=== PATIENT | male | born 1955 | race Caucasian/White ===

== ENCOUNTER → 2018-02-15 | Outpatient (CLI) | payer OTHER, MEDICAID | LOC: FIMAGING 13:35 | PROVIDERS: ATTEND Psychiatry & Neurology Neurology | DX: R27.9 Unspecified lack of coordination (principal) ==

== ENCOUNTER → 2018-03-04 | Outpatient (CLI) | payer OTHER, MEDICAID | LOC: FIMAGING 14:24 | PROVIDERS: ATTEND Psychiatry & Neurology Neurology | DX: M48.02 Spinal stenosis, cervical region (principal); M50.321 Other cervical disc degeneration at C4-C5 level ==

== ENCOUNTER → 2018-06-30 | Outpatient (CLI) | payer OTHER, MEDICAID ==
[~2018-06-30] MED LIST: IOPAMIDOL (ISOVUE 370) 100 ML BTL IV ONE
== END ==
LOC: FIMAGING 15:33
PROVIDERS: ATTEND Surgery
DX: I73.9 Peripheral vascular disease, unspecified (principal); L97.523 Non-pressure chronic ulcer of other part of left foot with necrosis of muscle; I70.0 Atherosclerosis of aorta; I70.293 Other atherosclerosis of native arteries of extremities, bilateral legs; R93.1 Abnormal findings on diagnostic imaging of heart and coronary circulation
CPT/HCPCS: 75635; Q9967; 82565-PO

== ENCOUNTER → 2018-07-26 | Outpatient (CLI) | payer OTHER, MEDICAID | LOC: FIMAGING 10:25 | PROVIDERS: ATTEND Surgery | DX: I74.3 Embolism and thrombosis of arteries of the lower extremities (principal); L97.529 Non-pressure chronic ulcer of other part of left foot with unspecified severity; I73.9 Peripheral vascular disease, unspecified; I25.10 Atherosclerotic heart disease of native coronary artery without angina pectoris; E11.9 Type 2 diabetes mellitus without complications; F31.9 Bipolar disorder, unspecified; Z86.73 Personal history of transient ischemic attack (TIA), and cerebral infarction without residual deficits ==

== ENCOUNTER 2018-07-27 08:39 | Inpatient (IN) | payer OTHER, MEDICAID ==
[2018-07-27] MEDS ORDERED: ceFAZolin 2 GM/DEXTROSE 100 ML IV ONE (08:50)
[2018-07-27] MEDS ORDERED: LR 1,000 ML IV ONE (08:51)
--- NOTE | 2018-07-27 09:09 | PDHPUP ---
History & Physical Update H&P update statement: This history and physical update is based on an assessment of the patient which was completed after admission or registration (within 24 hours), but prior to the surgery/procedure. H&P update: H&P reviewed & patient examined, no change in patient's condition since H&P completed
[2018-07-27 09:39] LABS: PLATELET COUNT 185 10^3/uL (150-400)
[2018-07-27] MEDS ORDERED: PROTAMINE SULFATE 50 MG/5 ML VIAL IVP ONE ×2 (10:39→13:26)
[2018-07-27] MEDS ORDERED: BUPIVACAINE 0.5% 30 ML SDV ONE ×2 (10:39→13:26)
[2018-07-27] MEDS ORDERED: THROMBIN (BOVINE) 20,000 UNIT SPRAY TP ONE ×2 (10:39→13:26)
[2018-07-27] MEDS ORDERED: IOPAMIDOL (ISOVUE-M 300) 15 ML VIAL ONE (10:40)
[2018-07-27] MEDS ORDERED: MIDAZOLAM 2 MG/2 ML VIAL IVP ONE (13:14)
--- NOTE | 2018-07-27 13:14 | PDANEPAE ---
ANE History of Present Illness major vascular disease and here for fem-pop to restore circulation to LLE and promote healing of non-healing wounds and reduce both resting and active pain ANE Past Medical History - Cardiovascular History Hx Hypertension: Yes Hx Arrhythmias: Yes Hx Chest Pain: No Hx Coronary Artery / Peripheral Vascular Disease: Yes Hx CHF / Valvular Disease: Yes Hx Palpitations: No Cardiovascular History Comment: Alayna-parkinson white syndrome. pacemaker. cad. NH- 2000 - Pulmonary History Hx COPD: No Hx Asthma/Reactive Airway Disease: No Hx Recent Upper Respiratory Infection: No Hx Oxygen in Use at Home: No Hx Sleep Apnea: No - Neurologic History Hx Seizures: No Hx Dementia: No Neurologic History Comment: stroke- 2008 - Endocrine History Hx Diabetes: Yes - Renal History Hx Renal Disorders: No - Liver History Hx Hepatic Disorders: No - Neurological & Psychiatric Hx Hx Neurological and Psychiatric Disorders: Yes Neurological / Psychiatric History Comment: Bipolar - Cancer History Hx Cancer: No - Congenital Disorder History Hx Congenital Disorders: Yes Congenital History Comment: [place]ff[place]-parkinson white syndrome - GI History Hx Gastrointestinal Disorders: No - Other Health History Other Health History: neurogenic bladder - Chronic Pain History Chronic Pain: Yes - Surgical History Prior Surgeries: pacemaker. gallbladder ANE Review of Systems Review of Systems: - Exercise capacity METS (RN): 1 METS ANE Patient History - Allergies Allergies/Adverse Reactions: fenofibrate nanocrystallized [From Tricor] Allergy (Verified 10/25/15 10:10) fenofibrate,micronized [From Tricor] Allergy (Verified 10/25/15 10:10) - Home Medications Home Medications: Acetaminophen [Tylenol ES 500 mg (*)] 1,000 mg PO Q2D PRN 11/06/15 [Last Taken 1 Week Ago ~07/20/18] Albuterol [Proventil Neb] 3 ml IH Q6 PRN 11/06/15 [Last Taken 07/26/18] Albuterol [Proventil Neb] 3 ml IH QID 11/06/15 [Last Taken Unknown] Ascorbic Acid [Vitamin C 500 mg (*)] 500 mg PO DAILY 11/06/15 [Last Taken 1 Week Ago ~07/20/18] Aspirin [Aspirin 81mg (*)] 81 mg PO DAILY 11/06/15 [Last Taken 1 Week Ago ~07/20] Atorvastatin Calcium [Lipitor 20 mg (*)] 20 mg PO DAILY 11/06/15 [Last Taken 05/15] Benzocaine 20%/Menthol [Orajel (*)] 1 candie TP Q4 PRN 11/06/15 [Last Taken ] Bethanechol Chloride [Urecholine] 50 mg PO TID 11/06/15 [Last Taken 07/26/18] Bisacodyl [Dulcolax] 10 mg RC DAILY PRN 11/06/15 [Last Taken 07/26/18] CYCLOBENZAPRINE HCL [Flexeril] 5 mg PO BID PRN 11/06/15 [Last Taken 07/26/18] Carvedilol [Coreg (*)] 25 mg PO DAILY 11/06/15 [Last Taken 07/26/18] Carvedilol [Coreg (*)] 37.5 mg PO DAILY@18 11/06/15 [Last Taken Unknown] Diazepam [Valium 5 MG (*)] 5 mg PO BID 11/06/15 [Last Taken 07/26/18] Ergocalciferol [Vitamin D2 (*)] 50,000 unit PO Q30D 11/06/15 [Last Taken ] Famotidine [Pepcid 20 MG (*)] 20 mg PO BID PRN 11/06/15 [Last Taken 07/26/18] Fluticasone Nasal [Flonase Nasal [place]] 1 sprays NASAL BID PRN 11/06/15 [Last Taken 07/26/18] Herbals/Supplements -Info Only 1 ea PO DAILY 11/06/15 [Last Taken 1 Week Ago ~] Ibuprofen [Motrin (*)] 600 mg PO Q6 PRN 11/06/15 [Last Taken 1 Week Ago ~] Insulin Glargine [Lantus 100 UNITS/ML] 6 units SC HS 11/06/15 [Last Taken ] Lisinopril [Zestril 30 mg] 30 mg PO BID 11/06/15 [Last Taken 07/26/18] Loratadine [Claritin 10 mg] 10 mg PO BID PRN 11/06/15 [Last Taken 07/26/18] Magnesium Hydroxide [Milk of Magnesia (*)] 30 ml PO DAILY PRN 11/06/15 [Last Taken 07/26/18] Methyl Salicylate/Menthol [Bengay (*)] 1 candie TP TID 11/06/15 [Last Taken ] Saxon-3 Fatty Acids [Fish Oil 1000 mg (*)] 2,000 mg PO DAILY 11/06/15 [Last Taken 07/26/18] Ondansetron Odt [Zofran Odt 4 mg (*)] 4 mg PO Q8 PRN 11/06/15 [Last Taken ] Polyethylene Glycol 3350 [Miralax 17 gm (*)] 17 gm PO BID 11/06/15 [Last Taken 07/26/18] Propranolol Sr [Inderal LA 80mg (*)] 120 mg PO Q12 11/06/15 [Last Taken 07/26/18 ] Sennosides [Senokot] 2 each PO BID 11/06/15 [Last Taken 07/26/18] Solifenacin Succinate [Vesicare 5 MG (*)] 5 mg PO DAILY8 11/06/15 [Last Taken ] Tamsulosin HCl [Flomax 0.4 MG (*)] 0.8 mg PO DAILY 11/06/15 [Last Taken 07/26/18 ] Tears/Dextran 70/Hypromellose [Natural Balance Tears (*)] 1 drop EACHEYE Q6 PRN 11/06/15 [Last Taken 07/27/18] Zolpidem Tartrate [Ambien 5MG (*)] 2.5 mg PO HS PRN 11/06/15 [Last Taken ] clonIDINE [Catapres (*)] 0.1 mg PO DAILY PRN 11/06/15 [Last Taken 07/26/18] glipiZIDE XL [Glucotrol XL 10 MG (*)] 20 mg PO DAILY 11/06/15 [Last Taken ] guaiFENesin [Mucinex 600 MG (*)] 600 mg PO BID 11/06/15 [Last Taken Unknown] guaiFENesin/DEXTROMETHORPHAN [Robitussin Dm Oral Liquid (*)] 10 ml PO BID PRN [Last Taken Unknown] lamoTRIgine [LamICTAL 100 MG (*)] 200 mg PO DAILY 07/12/16 [Last Taken 07/26/18] metFORMIN HCL [Glucophage 500 mg (*)] 1,000 mg PO BIDMEAL 11/06/15 [Last Taken 07/26/18] oxyCODONE IR [Oxycodone Ir (*)] 15 mg PO BID PRN 11/06/15 [Last Taken 1 Week Ago ~07/20/18] sitaGLIPtin PHOSPHATE [Januvia 100 MG (*)] 100 mg PO DAILY 11/06/15 [Last Taken 07/26/18] tiZANidine HCL [Zanaflex] 4 mg PO BID 11/06/15 [Last Taken 07/26/18] traMADol [Ultram 50 mg (*)] 50 mg PO BID 11/06/15 [Last Taken 07/26/18] - NPO status NPO Since - Liquids (Date): 07/26/18 NPO Since - Liquids (Time): 19:00 NPO Since - Solids (Date): 07/26/18 NPO Since - Solids (Time): 19:00 - Smoking Hx Smoking Status: Heavy smoker - Family Anes Hx Family Hx Anesthesia Complications: none ANE Labs/Vital Signs - Labs Result Diagrams: 07/27/18 08:50 07/27/18 08:50 - Vital Signs Blood Pressure: 168/105 Heart Rate: 76 Respiratory Rate: 16 O2 Sat (%): 93 Height: 190.5 cm Weight: 83.915 kg ANE Physical Exam - Airway Neck exam: decreased ROM Mallampati Score: Class 3 Mouth exam: dentures - Pulmonary Pulmonary: no respiratory distress, no rales or rhonchi - Cardiovascular Cardiovascular: regular rate and rhythym, no murmur, rub, or gallop - ASA Status ASA Status: III ANE Anesthesia Plan Anesthesia Plan: general endotracheal anesthesia Lines/Monitors: arterial line Total IV Anesthesia: No
[2018-07-27] MEDS ORDERED: IOTHALAMATE MEG (CONRAY) 50 ML VIAL IV ONE (13:27)
[2018-07-27] MEDS ORDERED: THROMBIN(HUM PLAS)/FIBRINOG/CA 5 ML VIAL TP ONE (13:28)
[2018-07-27] MEDS ORDERED: PHENYLEPHRINE 10 MG/ML SDV ONE (13:29)
[2018-07-27] MEDS ORDERED: ONDANSETRON 4 MG/2 ML VIAL ONE (13:29)
[2018-07-27] MEDS ORDERED: ROCURONIUM 100 MG/10 ML VIAL ONE (13:29)
[2018-07-27] MEDS ORDERED: DEXAMETHASONE 4 MG/ML VIAL ONE (13:29)
[2018-07-27] MEDS ORDERED: LIDOCAINE 2% 100 MG/5 ML SYR ONE (13:29)
[2018-07-27] MEDS ORDERED: PROPOFOL 200 MG/20 ML VIAL ONE ×2 (13:29→14:30)
[2018-07-27] MEDS ORDERED: fentaNYL 100 MCG/2 ML INJ ONE ×2 (13:29→14:31)
[2018-07-27] MEDS ORDERED: PAPAVERINE HCL 60 MG/2 ML SDV ONE (15:43)
--- NOTE | 2018-07-27 16:34 | ASMTCASEMG ---
Living Arrangements What is your living Answers: Alone arrangement? Who do you live with? Type Of Residence What kind of residence do Answers: Apartment you live in? Discharge Plan Comments Coordination Status Comments Notes: Patient is a 62yo single male who comes for surgery of nonhealing left foot wound. OT has been ordered. D/C plan TBD. CM will follow. Date Signed: 07/27/2018 04:33 PM Electronically Signed By:Annamaria Malave LCSW
[2018-07-27] MEDS ORDERED: SUGAMMADEX SODIUM 200 MG/2 ML VIAL IVP ONE (17:02)
[2018-07-27] MEDS ORDERED: ONDANSETRON 4 MG/2 ML VIAL IVP PRN ×2 (17:25→17:46)
[2018-07-27] MEDS ORDERED: NALOXONE HCL 0.4 MG/ML INJ IVP PRN (17:25)
[2018-07-27] MEDS ORDERED: ALBUTEROL 3 ML DEYVIAL IH PRN (17:25)
[2018-07-27] MEDS ORDERED: fentaNYL 100 MCG/2 ML INJ IVP PRN (17:25)
[2018-07-27] MEDS ORDERED: HYDROmorphONE/DILAUDID 1 MG/ML INJ ONE (17:41)
[2018-07-27] MEDS: HYDROmorphONE/DILAUDID 1 MG/ML INJ IVP PRN ×3 (17:44→18:08)
--- NOTE | 2018-07-27 17:45 | POSTANESTH ---
Post Anesthetic Evaluation Cardiovascular Status: Normal, Stable Respiratory Status: Normal, Stable Level of Consciousness/Mental Status: Can Participate in Eval Pain Control: Adequate, Prn Tx Ordered Nausea/Vomiting Control: Adequate, Prn Tx Ordered Complications Possibly Related to Anesthesia: None Noted
[2018-07-27] MEDS ORDERED: HYDROmorphONE/DILAUDID 1 MG/ML INJ IVP PRN (17:46)
--- NOTE | 2018-07-27 17:54 | POSTOPPROG ---
Post Op Note Date of Operation: 07/27/18 Surgeon: Stewart Lebron Sieve Grader Tender: Christina Lazo Anesthesiologist: Marce Walker/ Dariusz Kelly Anesthesia: GET(General Endotracheal) Pre-op Diagnosis: PAD, nonhealing LLE wound Post-op Diagnosis: same Procedure: L below knee fempop bypass c reverse saphenous v. graft Findings: good pedal pulse postprocedure; calcified fem. a; soft popliteal below knee Inf/Abcess present in the surg proc area at time of surgery?: No EBL: 50-100 Complications: none Bowel Protocol: N/A Clean Closure Performed: N/A Specimen(s): none
[2018-07-27] MEDS: DOCUSATE SODIUM 100 MG CAP PO SCH (19:56)
[2018-07-27] MEDS ORDERED: D50W 25 GM/50 ML SYR IVP PRN (20:02)
[2018-07-27] MEDS: NS 1,000 ML IV SCH ×2 (20:30→23:53)
[2018-07-27] MEDS ORDERED: ACETAMINOPHEN 325 MG TAB PO PRN (20:46)
--- NOTE | 2018-07-27 21:12 | PDMN ---
Medical Necessity Medical necessity: Pt meets inpt criteria per MD order and [facility] S-480, Femoral Popliteal Bypass, 2 days, IP only list. 62 y/o w/PAD, nonhealing LLE wound underwent L below knee fem pop bypass w/reverse saphenous vein graft. Pt w/mult comorbidities including diabetes, CAD, bipolar disorder, and hx CVA.
[2018-07-27] MEDS: traMADol 50 MG TAB PO PRN (21:31)
[2018-07-27] MEDS: traZODone 50 MG TAB PO SCH (21:31)
--- NOTE | 2018-07-27 21:52 | PDCONSULT ---
Creative Writing English Professor Note: Aaron Kraus is a 62-year-old male with past medical history of peripheral vascular disease, diabetes, coronary artery disease, CVA with subsequent hemiparesis, bipolar disorder who was admitted for a left fem-pop bypass. Medicine has been consulted to assist with medical management. He is currently postop day 0 status post right fem-pop bypass. He is complaining of some mild back pain which he says is secondary to being bed ridden for so long. Otherwise his pain is well controlled and he is essentially without complaints. He had been following with surgery for peripheral vascular disease the left him with a nonhealing ulcer on the lateral aspect of his left foot. 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.He also had a chronically thrombosed and recanalized proximal popliteal artery Past medical history BPH CVA with subsequent left-sided hemiparesis Non insulin dependent diabetes mellitus Hypertension Bipolar With Parkinson White Past surgical history Cystoscopy Prostate vaporization (PVP) Social history Smokes marijuana Does not drink Smokes tobacco Family history Noncontributory Allergies Fenofibrate Try cor Medications Patient does not know his medications but through chart review appears his meds include: Gemini Norvasc 2.5 daily Baby aspirin daily But then a coal 50 mg three times daily Coreg 25 mg twice daily Valium 5 mg twice daily Flomax 0.8 mg daily Glipizide 10 mg twice daily Januvia 100 mg daily Lamictal 100 mg daily Lipitor 20 mg daily Lisinopril 20 mg twice daily Metformin 1 g twice daily Propranolol/hydrochlorothiazide 1 tablet twice daily Vital signs Blood pressure 129/77, pulse 61, respirations 15, saturating 99% on 3 L of oxygen, temperature 37.5 degrees C Examination General- no acute distress HEENT-PERRLA, atraumatic normocephalic, mucous membranes moist pink and acyanotic Lungs-clear to auscultation bilaterally Cardiovascular-regular rhythm and rate no murmurs rubs gallops Abdomen- soft nontender nondistended in all quadrants no organomegaly Extremities- left extremity is bandaged Neuro- cranial nerves 2-12 are grossly intact, no focal neurologic deficits Psych-mood affect appropriate - no CVA tenderness Assessment plan 62-year-old male with past medical history of non insulin-dependent diabetes mellitus, hypertension, CVA, CAD, bipolar, BPH PVD status post left fem-pop bypass- postop day 0. Management per surgery Non insulin-dependent diabetes mellitus- patient does not know his medications, he says he is only on metformin, but I see glipizide and Januvia and his medication list. I have asked the pharmacy to reconcile his home medications. In the meantime would continue with sliding scale insulin Hypertension- appears he is on lisinopril, propranolol and hydrochlorothiazide at home although he was not aware of that. Pressures are low to normal currently. All add p.r.n. Hydralazine 10 mg q.6 for systolics over 170 until his medications can be reconciled Bipolar- resume Lamictal once dose confirmed CAD- on Coreg, lisinopril, Lipitor, and aspirin. Resume once medications reconciled BPH- continue Flomax Insomnia- takes trazodone 25 mg at bedtime p.r.n. Along with Valium. Prophylaxis- Lovenox Thank you for allowing us to assist in the care of this patient. Medicine will continue to follow
[2018-07-27] MEDS ORDERED: ALBUMIN 5% 250 ML BOTTLE IV ONE (22:04)
[2018-07-27] MEDS ORDERED: ALBUMIN 5% 250 ML IV ONE (22:30)
[2018-07-27] MEDS ORDERED: NS BOLUS 1000 ML (Wide open) IV ONE (22:30)
[2018-07-27] MEDS: DIAZEPAM 5 MG TAB PO SCH (22:30)
[2018-07-28] MEDS: LIDOCAINE 4%/MENTHOL 1% PATCH TD SCH ×2 (02:25→21:22)
[2018-07-28] MEDS: traMADol 50 MG TAB PO PRN (04:45)
[2018-07-28] MEDS ORDERED: POLYETHYLENE GLYCOL 3350 17 GM PKT PO PRN (07:25)
[2018-07-28] MEDS ORDERED: FLUTICASONE NASAL 120 SPRAYS/16 GM MDI EACHNARE PRN (07:25)
[2018-07-28] MEDS ORDERED: BENZOCAINE 20%/MENTHOL (ORAJEL) GEL 11.9GM TUBE TP PRN (07:25)
[2018-07-28] MEDS ORDERED: ALBUTEROL 3 ML DEYVIAL IH PRN (07:25)
[2018-07-28] MEDS: INSULIN LISPRO 100 UNIT/ML SC SCH ×3 (07:38→19:26)
[2018-07-28] MEDS: CARVEDILOL 25 MG TAB PO SCH ×2 (07:43→17:04)
[2018-07-28] MEDS ORDERED: TEARS/DEXTRAN 70/HYPROMELLOSE 15 ML OPHT.BTL EACHEYE PRN (07:49)
[2018-07-28] MEDS ORDERED: metFORMIN HCL 500 MG TAB PO SCH (08:00)
[2018-07-28] MEDS: SENNOSIDES 1 TAB PO SCH ×2 (08:06→21:23)
[2018-07-28] MEDS: DOCUSATE SODIUM 100 MG CAP PO SCH ×2 (08:07→21:23)
[2018-07-28] MEDS: ASPIRIN 81 MG CHEWABLE TAB PO SCH (08:07)
[2018-07-28] MEDS: MONTELUKAST SODIUM 10 MG TAB PO SCH (08:07)
[2018-07-28] MEDS: lamoTRIgine 100 MG TAB PO SCH ×2 (08:07→08:16)
[2018-07-28] MEDS: ATORVASTATIN CALCIUM 20 MG TAB PO SCH (08:07)
[2018-07-28] MEDS: glipiZIDE XL 5 MG TAB PO SCH (08:15)
[2018-07-28] MEDS: BETHANECHOL 25 MG TAB PO SCH ×3 (08:15→21:23)
[2018-07-28] MEDS: TAMSULOSIN HCL 0.4 MG CAP PO SCH (08:18)
[2018-07-28] MEDS ORDERED: PROPRANOLOL SR 60 MG CAP PO SCH (09:00)
[2018-07-28] MEDS ORDERED: LISINOPRIL 20 MG TAB PO SCH (09:00)
[2018-07-28] MEDS: PATCH REMOVAL 1 EA PATCH TD SCH (09:12)
--- NOTE | 2018-07-28 11:09 | SOAPPROG ---
SOAP Progress Note Assessment/Plan: Assessment/Plan: 62 Y M s/p L below knee fem pop bypass c reverse saphenous v. graft, POD#1. Doing well. Foot is warm. Palpable pedal pulses:) White catheter removed. Condom cath in place. Voiding. Pain controlled. OOB this am. No severe bending at hip or knee. Wounds well dressed. Change tomorrow. May leave open to air if dry. ADA diet. Medicines reconciled. Appreciate hospitalists' management of comorbidities. Dispo: medsurg. Eventually back to [facility]. S: minimal pain. no complaints. concerned about using his WC (will be ok after 2 -3 of strict hip/knee flexion precautions). O: alert, nad, very talkative this am, pleasant ctab rrr abd soft wounds well dressed, min dried shadowing, palpable pedal pulses L 07/28/18 11:05 Objective: Vital Signs Temp Pulse Resp BP Pulse Ox 37.4 C 66 27 H 115/64 94 07/27/18 19:15 07/28/18 08:00 07/28/18 08:00 07/28/18 08:00 07/28/18 08:00 Laboratory Results 07/28/18 04:50 07/28/18 04:50 07/27/18 07/28/18 07/29/18 05:59 05:59 05:59 Intake Total 4125 Output Total 625 Balance 3500 ICD10 Worksheet Patient Problems: Problems Problem Status Onset Abdominal pain Acute
--- NOTE | 2018-07-28 11:49 | ASMTCMCOM ---
CM Note CM Note Notes: Spoke with PT who recommends patient go for SNF rehab before returning to [facility]. Patient is a resident with [facility]. Patient transferred out of ICU. CM will need to follow up with [facility] regarding SNF rehab care for patient. Referral made. CM will follow. Date Signed: 07/28/2018 11:48 AM Electronically Signed By:Annamaria Malave LCSW
[2018-07-28] MEDS: OXYCODONE/APAP 5/325 TAB PO PRN ×2 (12:08→17:04)
--- NOTE | 2018-07-28 12:24 | HOSPPROG ---
Hospitalist Progress Note Assessment/Plan: 62-year-old male with past medical history of non insulin-dependent diabetes mellitus, hypertension, CVA, CAD, bipolar, BPH PVD status post left fem-pop bypass- postop day 1. Management per surgery Non insulin-dependent diabetes mellitus -cont ISS -cont home meds, but will stop Metformin in case contrast studies are needed Hypertension -soft BP here -will hold home meds for now Bipolar- Lamictal CAD- on Coreg, lisinopril, Lipitor, and aspirin at home. Holding Lisinopril BPH- continue Flomax Insomnia- takes trazodone 25 mg at bedtime p.r.n. Along with Valium. Anemia, follow Prophylaxis- Lovenox Subjective: no cp or sob. bp soft Objective: Vital Signs Temp Pulse Resp BP Pulse Ox 36.9 C 74 20 106/74 95 07/28/18 11:29 07/28/18 11:29 07/28/18 11:29 07/28/18 11:29 07/28/18 11:29 Laboratory Results 07/28/18 04:50 07/28/18 04:50 07/27/18 07/28/18 07/29/18 05:59 05:59 05:59 Intake Total 4125 Output Total 625 Balance 3500 - Physical Exam Constitutional: no apparent distress Eyes: PERRL, EOMI Ears, Nose, Mouth, Throat: moist mucous membranes, hearing normal, ears appear normal Cardiovascular: regular rate and rhythym, No edema Respiratory: no respiratory distress, no rales or rhonchi Gastrointestinal: normoactive bowel sounds, soft, non-tender abdomen Skin: warm Neurologic: AAOx3 Psychiatric: interacting appropriately, not anxious, not encephalopathic Lymph, Heme, Immunologic: No petechiae ICD10 Worksheet Patient Problems: Problems Problem Status Onset Abdominal pain Acute
[2018-07-28] MEDS ORDERED: BUDESONIDE EACHNARE SCH (21:00)
[2018-07-28] MEDS: DIAZEPAM 5 MG TAB PO SCH (21:23)
[2018-07-28] MEDS: traZODone 50 MG TAB PO SCH (21:23)
[2018-07-29] MEDS: OXYCODONE/APAP 5/325 TAB PO PRN ×4 (00:29→21:17)
[2018-07-29 06:31] LABS: PLATELET COUNT 137 10^3/uL (150-400)
[2018-07-29] MEDS: glipiZIDE XL 5 MG TAB PO SCH (07:59)
[2018-07-29] MEDS: ATORVASTATIN CALCIUM 20 MG TAB PO SCH (07:59)
[2018-07-29] MEDS: DOCUSATE SODIUM 100 MG CAP PO SCH ×2 (07:59→21:15)
[2018-07-29] MEDS: MONTELUKAST SODIUM 10 MG TAB PO SCH (07:59)
[2018-07-29] MEDS: CARVEDILOL 25 MG TAB PO SCH ×2 (08:00→17:44)
[2018-07-29] MEDS: TAMSULOSIN HCL 0.4 MG CAP PO SCH (08:01)
[2018-07-29] MEDS: SENNOSIDES 1 TAB PO SCH ×2 (08:01→21:14)
[2018-07-29] MEDS: ENOXAPARIN 40 MG/0.4 ML SYR SC SCH (08:01)
[2018-07-29] MEDS: BETHANECHOL 25 MG TAB PO SCH ×3 (08:01→21:14)
[2018-07-29] MEDS: ASPIRIN 81 MG CHEWABLE TAB PO SCH (08:01)
[2018-07-29] MEDS: lamoTRIgine 100 MG TAB PO SCH (08:07)
[2018-07-29] MEDS: traMADol 50 MG TAB PO PRN (08:26)
[2018-07-29] MEDS: INSULIN LISPRO 100 UNIT/ML SC SCH ×3 (08:29→18:35)
[2018-07-29] MEDS: PATCH REMOVAL 1 EA PATCH TD SCH (10:13)
--- NOTE | 2018-07-29 14:40 | HOSPPROG ---
Hospitalist Progress Note Assessment/Plan: 62-year-old male with past medical history of non insulin-dependent diabetes mellitus, hypertension, CVA, CAD, bipolar, BPH PVD status post left fem-pop bypass- postop day 1. Management per surgery Non insulin-dependent diabetes mellitus -cont ISS -cont home meds, but have stopped Metformin in case contrast studies are needed Hypertension -soft BP here -will cont to hold home meds for now Bipolar- Lamictal CAD- on Coreg, lisinopril, Lipitor, and aspirin at home. Holding Lisinopril BPH- continue Flomax Insomnia- takes trazodone 25 mg at bedtime p.r.n. Along with Valium. Anemia, follow Prophylaxis- Lovenox Subjective: still with soft bp. stable overall. Pain is well controlled Objective: Vital Signs Temp Pulse Resp BP Pulse Ox 37.1 C 76 16 95/57 L 91 L 07/29/18 11:21 07/29/18 11:21 07/29/18 11:21 07/29/18 11:21 07/29/18 11:21 Laboratory Results 07/29/18 05:35 07/28/18 04:50 07/28/18 07/29/18 07/30/18 05:59 05:59 05:59 Intake Total 4125 200 Output Total 625 450 Balance 3500 -250 - Physical Exam Constitutional: no apparent distress Eyes: PERRL, EOMI Ears, Nose, Mouth, Throat: moist mucous membranes, hearing normal Cardiovascular: regular rate and rhythym Respiratory: no respiratory distress, no rales or rhonchi, clear to auscultation Gastrointestinal: normoactive bowel sounds Skin: warm Neurologic: AAOx3 Psychiatric: interacting appropriately, not anxious, not encephalopathic Lymph, Heme, Immunologic: No petechiae ICD10 Worksheet Patient Problems: Problems Problem Status Onset Abdominal pain Acute
--- NOTE | 2018-07-29 15:47 | SOAPPROG ---
SOAP Progress Note Assessment/Plan: Assessment/Plan: 62 Y M s/p L below knee fem pop bypass c reverse saphenous v. graft, POD#2 Doing well overall. Foot is warm. Palpable pedal pulses Barillas cath was removed yesterday, pt now having urinary incontinence due to neurogenic bladder. Reinsert barillas today. Pain controlled. Continue to get oob with PT. No severe bending at hip or knee. Ok to sit in wheelchair with leg extended. Wounds well dressed. Change tomorrow. May leave open to air if dry. Appreciate hospitalists' management of comorbidities. Dispo: Back to [facility] in the next day or so. S: Having pain, but improving. Reports he typically only ambulates with PT at [facility], but independently transfers in and out of wheelchair. Not quite strong enough to do it here yet. O: Alert Afebrile No increased WOB Abdomen soft, nontender RLE: incisions well dressed. +pedal pulses. 07/29/18 15:33 Objective: Vital Signs Temp Pulse Resp BP Pulse Ox 37.1 C 76 16 95/57 L 91 L 07/29/18 11:21 07/29/18 11:21 07/29/18 11:21 07/29/18 11:21 07/29/18 11:21 Laboratory Results 07/29/18 05:35 07/28/18 04:50 07/28/18 07/29/18 07/30/18 05:59 05:59 05:59 Intake Total 4125 200 Output Total 625 450 Balance 3500 -250 ICD10 Worksheet Patient Problems: Problems Problem Status Onset Abdominal pain Acute
--- NOTE | 2018-07-29 16:11 | ASMTCMCOM ---
CM Note CM Note Notes: Pts case discussed w/ [facility]. Anticipate d/c for tomorrow or Thursday. CM spoke to Matilde at [facility] and she will start getting auth. Updates sent. CM to follow. Plan: [facility] SNF[facility] Date Signed: 07/29/2018 04:10 PM Electronically Signed By:MARIA L Dubois
[2018-07-29] MEDS: LIDOCAINE 4%/MENTHOL 1% PATCH TD SCH (21:14)
[2018-07-29] MEDS: traZODone 50 MG TAB PO SCH (21:15)
[2018-07-29] MEDS: DIAZEPAM 5 MG TAB PO SCH (21:15)
[2018-07-30] MEDS: OXYCODONE/APAP 5/325 TAB PO PRN ×3 (04:25→17:41)
[2018-07-30] MEDS: INSULIN LISPRO 100 UNIT/ML SC SCH ×3 (07:52→17:02)
[2018-07-30] MEDS: CARVEDILOL 25 MG TAB PO SCH ×2 (08:04→17:28)
[2018-07-30] MEDS: ASPIRIN 81 MG CHEWABLE TAB PO SCH (08:04)
[2018-07-30] MEDS: glipiZIDE XL 5 MG TAB PO SCH (08:05)
[2018-07-30] MEDS: ATORVASTATIN CALCIUM 20 MG TAB PO SCH (08:05)
[2018-07-30] MEDS: lamoTRIgine 100 MG TAB PO SCH (08:05)
[2018-07-30] MEDS: BETHANECHOL 25 MG TAB PO SCH ×3 (08:05→20:34)
[2018-07-30] MEDS: SENNOSIDES 1 TAB PO SCH ×2 (08:06→20:34)
[2018-07-30] MEDS: MONTELUKAST SODIUM 10 MG TAB PO SCH (08:06)
[2018-07-30] MEDS: TAMSULOSIN HCL 0.4 MG CAP PO SCH (08:06)
[2018-07-30] MEDS: DOCUSATE SODIUM 100 MG CAP PO SCH ×2 (08:14→20:35)
[2018-07-30] MEDS: ENOXAPARIN 40 MG/0.4 ML SYR SC SCH (08:14)
[2018-07-30] MEDS: PATCH REMOVAL 1 EA PATCH TD SCH (08:26)
[2018-07-30] MEDS ORDERED: MAGNESIUM HYDROXIDE 30 ML UDCUP PO ONE (10:28)
[2018-07-30] MEDS ORDERED: HYDROmorphONE/DILAUDID 1 MG/ML INJ IVP PRN (10:29)
--- NOTE | 2018-07-30 10:34 | SOAPPROG ---
SOAP Progress Note Assessment/Plan: Assessment/Plan: 62 Y M s/p L below knee fem pop bypass c reverse saphenous v. graft, POD#2 Doing well overall. Foot is warm. Palpable pedal pulses Neurogenic bladder. Refused barillas catheter. Condom cath working well now. Pain controlled with oxycodone. Will add iv dilaudid for breakthrough pain. Continue to get oob with PT. No severe bending at hip or knee. Ok to sit in wheelchair with leg extended. Dressing changed today. Ok to leave open to air if dry. Constipation. Milk of mag ordered. Appreciate hospitalists' management of comorbidities. Dispo: Back to [facility] tomorrow. S: Still having significant pain, but reports that he has chronic pain in left knee. Slightly worse after surgery. Working with PT to get into chair. O: Alert Afebrile No increased WOB Abdomen soft, nontender RLE: dressing removed today. Incision appears to be healing well. Superior aspect is dry, inferior portion still oozy. RN to apply xeroform, 4x4s and kerlix. +pedal pulses 07/30/18 10:30 Objective: Vital Signs Temp Pulse Resp BP Pulse Ox 36.8 C 67 18 124/75 H 91 L 07/30/18 08:00 07/30/18 08:04 07/30/18 08:00 07/30/18 08:04 07/30/18 08:00 Laboratory Results 07/29/18 05:35 07/28/18 04:50 07/29/18 07/30/18 07/31/18 05:59 05:59 05:59 Intake Total 200 595 Output Total 832 925 Balance -250 -330 ICD10 Worksheet Patient Problems: Problems Problem Status Onset Abdominal pain Acute
--- NOTE | 2018-07-30 11:52 | ASMTCMCOM ---
CM Note CM Note Notes: Pts case discussed w/ [facility]. Pt is most likely going to d/c back to [facility] tomorrow until SNF benefits. CM notified Pau at [facility] (P#: [phone]) about the potential d/c for tomorrow. Pau should be able to get auth by then and accept him for rehab before transitioning back to LTC at [facility]. Updates sent to [place]. to follow. Plan: [facility] SNF Date Signed: 07/30/2018 11:50 AM Electronically Signed By:MARIAL Dubois
--- NOTE | 2018-07-30 16:01 | HOSPPROG ---
Hospitalist Progress Note Assessment/Plan: 62-year-old male with past medical history of non insulin-dependent diabetes mellitus, hypertension, CVA, CAD, bipolar, BPH PVD status post left fem-pop bypass- postop day 1. Management per surgery Non insulin-dependent diabetes mellitus -cont ISS -glucose overall well controlled -cont home meds, but have stopped Metformin in case contrast studies are needed Hypertension -soft BP here -will cont to hold home meds for now. BP is better. If elevated, will restart meds Bipolar- Lamictal CAD- on Coreg, lisinopril, Lipitor, and aspirin at home. Holding Lisinopril per above BPH- continue Flomax Insomnia- takes trazodone 25 mg at bedtime p.r.n. Along with Valium. Anemia, follow Prophylaxis- Lovenox dispo: per primary Subjective: no new complaints. no overnight events Objective: Vital Signs Temp Pulse Resp BP Pulse Ox 36.8 C 71 18 125/81 H 92 07/30/18 11:29 07/30/18 15:20 07/30/18 15:20 07/30/18 11:29 07/30/18 15:20 Laboratory Results 07/29/18 05:35 07/28/18 04:50 07/29/18 07/30/18 07/31/18 05:59 05:59 05:59 Intake Total 200 595 Output Total 450 925 Balance -250 -330 - Physical Exam Constitutional: no apparent distress Eyes: PERRL, EOMI Ears, Nose, Mouth, Throat: moist mucous membranes, hearing normal Cardiovascular: regular rate and rhythym Respiratory: no respiratory distress, no rales or rhonchi, clear to auscultation Gastrointestinal: normoactive bowel sounds Skin: warm Neurologic: AAOx3 Psychiatric: interacting appropriately, not anxious, not encephalopathic Lymph, Heme, Immunologic: No petechiae ICD10 Worksheet Patient Problems: Problems Problem Status Onset Abdominal pain Acute
[2018-07-30] MEDS: traZODone 50 MG TAB PO SCH (20:34)
[2018-07-30] MEDS: DIAZEPAM 5 MG TAB PO SCH (20:35)
[2018-07-30] MEDS: LIDOCAINE 4%/MENTHOL 1% PATCH TD SCH (22:15)
[2018-07-31] MEDS: OXYCODONE/APAP 5/325 TAB PO PRN (06:41)
[2018-07-31] MEDS: INSULIN LISPRO 100 UNIT/ML SC SCH ×2 (08:10→12:21)
--- NOTE | 2018-07-31 09:12 | HOSPPROG ---
Hospitalist Progress Note Assessment/Plan: 62-year-old male with past medical history of non insulin-dependent diabetes mellitus, hypertension, CVA, CAD, bipolar, BPH. First encounter, chart reviewed. *PVD -status post left fem-pop bypass- postop day 3 -has some pain but overall doing better *Non insulin-dependent diabetes mellitus -SS -glucose overall well controlled -cont home meds, but have stopped Metformin in case contrast studies are needed *Hypertension -bp is elevated this morning, but had been low -will resume Lisinopril but at a lower dose than his home meds (usually on Lisinopril 20mg bid) *Bipolar- Lamictal *CVA hx w residual left sided weakness *CAD -Coreg, lisinopril, Lipitor, and aspirin. *BPH- continue Flomax *Insomnia- takes trazodone 25 mg at bedtime p.r.n. Along with Valium. *Anemia, follow * DVT Prophylaxis- Lovenox dispo: per primary Subjective: Aaron said his left lower leg cont to have pain. Objective: Vital Signs Temp Pulse Resp BP Pulse Ox 36.8 C 60 15 150/85 H 92 07/31/18 08:00 07/31/18 08:00 07/31/18 08:00 07/31/18 08:00 07/31/18 08:00 Laboratory Results 07/29/18 05:35 07/28/18 04:50 07/30/18 07/31/18 08/01/18 05:59 05:59 05:59 Intake Total 595 250 Output Total 92 725 Balance -330 475 - Physical Exam Constitutional: chronically ill appearing Eyes: PERRL Ears, Nose, Mouth, Throat: hearing normal Cardiovascular: regular rate and rhythym, other (palpable dp pulse on left foot) Respiratory: no respiratory distress Gastrointestinal: normoactive bowel sounds Skin: warm Musculoskeletal: other (left sided weaknss) Neurologic: AAOx3 Psychiatric: interacting appropriately ICD10 Worksheet Patient Problems: Problems Problem Status Onset Abdominal pain Acute
[2018-07-31] MEDS ORDERED: BISACODYL 10 MG SUPP PR PRN (09:35)
[2018-07-31] MEDS: ASPIRIN 81 MG CHEWABLE TAB PO SCH (09:35)
[2018-07-31] MEDS: SENNOSIDES 1 TAB PO SCH (09:35)
[2018-07-31] MEDS ORDERED: MAGNESIUM HYDROXIDE 30 ML UDCUP PO PRN (09:35)
[2018-07-31] MEDS ORDERED: LACTULOSE 20 GM/30 ML UDCUP PO PRN (09:35)
[2018-07-31] MEDS: DOCUSATE SODIUM 100 MG CAP PO SCH (09:35)
[2018-07-31] MEDS: ENOXAPARIN 40 MG/0.4 ML SYR SC SCH (09:35)
[2018-07-31] MEDS: TAMSULOSIN HCL 0.4 MG CAP PO SCH (09:36)
[2018-07-31] MEDS: ATORVASTATIN CALCIUM 20 MG TAB PO SCH (09:36)
[2018-07-31] MEDS: MONTELUKAST SODIUM 10 MG TAB PO SCH (09:36)
[2018-07-31] MEDS: CARVEDILOL 25 MG TAB PO SCH (09:36)
[2018-07-31] MEDS: glipiZIDE XL 5 MG TAB PO SCH (09:36)
[2018-07-31] MEDS: BETHANECHOL 25 MG TAB PO SCH (09:36)
[2018-07-31] MEDS: lamoTRIgine 100 MG TAB PO SCH (09:36)
[2018-07-31] MEDS: PATCH REMOVAL 1 EA PATCH TD SCH (09:45)
[2018-07-31] MEDS ORDERED: POLYETHYLENE GLYCOL 3350 17 GM PKT PO SCH (09:45)
[2018-07-31] MEDS ORDERED: LISINOPRIL 10 MG TAB PO SCH (10:15)
--- NOTE | 2018-07-31 10:44 | SOAPPROG ---
SOAP Progress Note Assessment/Plan: Assessment: 62-year-old male postop day 3 from fem-pop bypass for peripheral artery disease. Patient reports improvement in pain, no signs or symptoms of infection. The patient appears stable, and ready to discharge to SNF when bed available Provided reassurance that he would be returning to a different unit Nursing to change dressing after breakfast S: Patient reports improvement in pain, states he would like to have BM prior to discharge. Was concerned that would not have nursing staff over the weekend - O: General: Pleasant, well-nourished and well-groomed HENT: Normocephalic, no gross hearing deficits, mucous membranes moist, pupils equal and round, no scleral icterus Lungs: Clear to auscultation bilaterally, No increased work of breathing Cardiac: Regular rate, 2+ DP pulse LLE Skin: Warm and dry. Incision on LLE cdi - scant staining on lower dressing, otherwise staple line cdi Psych: Mood and affect normal - anxious Neuro: Grossly intact Plan: 1. Discharge to rehab facility 2. Follow-up with Dr. Lebron in 2 weeks 3. Rehab per PT 07/31/18 10:43 07/31/18 10:44 07/31/18 11:24 Objective: Vital Signs Temp Pulse Resp BP Pulse Ox 36.8 C 60 15 150/85 H 92 07/31/18 08:00 07/31/18 08:00 07/31/18 08:00 07/31/18 08:00 07/31/18 08:00 Laboratory Results 07/29/18 05:35 07/28/18 04:50 07/30/18 07/31/18 08/01/18 05:59 05:59 05:59 Intake Total 595 250 Output Total 586 721 Balance -330 -394 ICD10 Worksheet Patient Problems: Problems Problem Status Onset Abdominal pain Acute
--- NOTE | 2018-07-31 11:44 | PDIAF ---
- Diagnosis Diagnosis: peripheral vascular disease Code Status: Do Not Resuscitate - Medication Management Discharge Medications: electronically signed and located in the Home Medication List. - Orders Diet Recommendation: no restrictions on diet Diet Texture: Regular Texture Diet Additional Instructions: Avoid severe bending at knee and hip. Continue baby aspirin and atorvastatin, in addition to your other home meds. Please note that when he came in, his Lisinopril was listed as 20 mg po bid. His blood pressure was lower and while in the hospital he was on Lisinopril 10 mg po daily. This will need to be adjusted by his PCP or SNF MD as appropriate Ok to leave incisions open to air. Follow up with us in our office late next week to have your dania removed. Call with fever, chills or increased pain. - Follow Up Care Current Providers and Referrals: Stewart Lebron MD [Medical Doctor] - 08/06/18 ARIES SO [Primary Care Provider] -
--- NOTE | 2018-07-31 12:27 | ASMTLACE ---
DAVID Length of stay for Answers: 4-6 days current admission Acuity / Level of Answers: Yes Care: Did the patient have an inpatient admission? Comorbidities - select Answers: Coronary Artery Disease all that apply Diabetes (uncontrolled or controlled) Peripheral vascular disease # of Emergency department Answers: 0 visits in the last 6 months Social determinants Answers: Mental health diagnosis (anxiety, depression, pers onality disorders, etc.) Score: 14 Date Signed: 07/31/2018 12:26 PM Electronically Signed By:MOUNIKA Snow
--- NOTE | 2018-07-31 12:30 | ASDISCHSUM ---
Discharge Information Plan Status:SNF Medically Cleared to Leave:07/31/2018 Discharge Date:07/31/2018 CM D/C Disposition:Group Home Facility ADT D/C Disposition:Group Home Facility Projected Discharge Date:07/31/2018 11:00 AM Transportation at D/C:ALS/BLS Discharge Delay Reason: Follow-Up Date:07/31/2018 11:00 AM Discharge Slot: Final Diagnosis: Placement Information Referral Type:*Fpc/SNF Referral ID:[id number] Provider Name:Rossy Chaidezulder Address 1:[address] Address 2: City:[place] Selection Factors: State:[place] Patient Contact Information Contact Name:EBEN Relationship: Address: Work Phone: City: [facility] Phone: [facility] Code: Email: Financial Information Financial Class:Medicare Advantage Plans Primary Plan Desc:[facility] RE[facility] Primary Plan Number:[id number] Secondary Plan Desc:MED[place] Secondary Plan Number:[id number] Assessment Information LACE LACE Length of stay for Answers: 4-6 days current admission Acuity / Level of Answers: Yes Care: Did the patient have an inpatient admission? Comorbidities - select Answers: Coronary Artery Disease all that apply Diabetes (uncontrolled or controlled) Peripheral vascular disease # of Emergency department Answers: 0 visits in the last 6 months Social determinants Answers: Mental health diagnosis (anxiety, depression, pers onality disorders, etc.) Score: 14 Date Signed: 07/31/2018 12:26 PM Electronically Signed By:MOUNIKA Snow [facility] Initial CM Assessment Living Arrangements What is your living Answers: Alone arrangement? Who do you live with? Type Of Residence What kind of residence do Answers: Apartment you live in? Discharge Plan Comments Coordination Status Comments Notes: Patient is a 62yo single male who comes for surgery of nonhealing left foot wound. OT has been ordered. D/C plan TBD. CM will follow. Date Signed: 07/27/2018 04:33 PM Electronically Signed By:Annamaria Malave LCSW [facility] [place] Progress Note CM Note CM Note Notes: Spoke with PT who recommends patient go for SNF rehab before returning to detention care. Patient is a resident with [facility]. Patient transferred out of ICU. CM will need to follow up with [facility] regarding SNF rehab care for patient. Referral made. CM will follow. Date Signed: 07/28/2018 11:48 AM Electronically Signed By:Annamaria Malave LCSW [facility] [place] Progress Note CM Note [place] Note Notes: Pts case discussed w/ CHERRY Edge. Anticipate d/c for tomorrow or Thursday. CM spoke to Matilde at [facility] and she will start getting auth. Updates sent. CM to follow. Plan: [facility] SNF[facility]LTC Date Signed: 07/29/2018 04:10 PM Electronically Signed By:MARIA L Dubois [facility] CM Progress Note CM Note CM Note Notes: Pts case discussed w/ CHERRY Edge. Pt is most likely going to d/c back to [facility] tomorrow until SNF benefits. CM notified Pau at [facility] (P#: [phone]) about the potential d/c for tomorrow. Pau should be able to get auth by then and accept him for rehab before transitioning back to LTC at [facility]. Updates sent to [place]. to follow. Plan: [facility] SNF Date Signed: 07/30/2018 11:50 AM Electronically Signed By:MARIA L Dubois Intervention Information Intervention Type:*IM-Signed Date of Service:07/30/2018 11:44 AM Patient Type:Inpatient Staff Member:Ame Joaquin Hours: Discipline: Severity: Comment:
[2018-07-31 12:55] VITALS: BP 132/93
--- NOTE | 2018-07-31 15:03 | ASMTDCNOTE ---
Case Management Discharge Discharge Order Complete? Answers: Yes Patient to Obtain Answers: Other Notes: [facility] Medications Transportation Arranged Answers: [facility] Stretcher Transport will Pick (Date 07/31/2018 04:00 PM & Time) Case Management Transport Answers: Yes Form Complete Faxed Final Orders Answers: Yes Agency/Facility Transfer Answers: Yes Report Printed & Faxed to Receiving Agency Discharge Comments Notes: Pt is discharging back to [facility] today. Stretcher transport through [facility]. D/C meds, order, facility transfer sent via [facility]. Notified Matilde at . Pt has a power w/c here that [facility] is unable to take in ambulance. Security will lock the w/c up and Crystal will send someone from on Thursday to pick it up. Pt informed and security will give him a receipt. Pt's RN informed as well. Date Signed: 07/31/2018 03:03 PM Electronically Signed By:MOUNIKA Snow
--- NOTE | 2018-07-31 15:33 | GOP ---
[f rep st] OPERATIVE REPORT DATE OF OPERATION: 07/27/2018 SURGEON: Stewart Lebron MD SHEAR HELPER: CHERRY Hernández. ANESTHESIOLOGIST: Dr. Walker. PREOPERATIVE DIAGNOSIS: Peripheral vascular disease with nonhealing left lower extremity wound. POSTOPERATIVE DIAGNOSIS: Peripheral vascular disease with nonhealing left lower extremity wound. PROCEDURE PERFORMED: Left femoral-popliteal bypass with reverse saphenous vein graft. Left common f emoral artery endarterectomy. FINDINGS: The patient was found to have a soft distal popliteal vessel. The common femoral vessel w as quite calcified and difficult, but patent. The patient had good palpable pulses at the completion . DESCRIPTION OF PROCEDURE: The patient was taken to the operating room where he received a satisfacto ry general endotracheal anesthesia by Dr. Walker in combination with Dr. Kelly. He was placed in the supine position, prepped and draped in the usual sterile fashion. Incision was made in the below-kn ee popliteal space medially. Dissection was carried down through the subcutaneous tissue and into th e popliteal space. Some of the hamstring tendons were divided. The popliteal artery was then dissec amanda free from other parts of the neurovascular bundle. It was isolated with vessel loops and appeare d to be soft and adequate for bypass. The saphenous vein was preserved. A second incision was made at the groin level and dissection extended down through the subcutaneous tissue and the common femora l, superficial femoral, and profunda femoris arteries and several branches were dissected free and co ntrolled with vessel loops. The common femoral was widely patent, but markedly calcified. After esequiel quate exposure was achieved, the saphenous vein was then dissected free from the groin down to well b elow the knee with multiple incisions dissecting the vein from the subcutaneous tissue. Multiple bra nches were hemoclipped and divided. The vein was found to be small but adequate for the bypass. The vein was harvested. The patient was systemically heparinized. The vein was reversed. An end-to-si de anastomosis was then made to the popliteal artery with a running 6-0 Prolene suture. The suture l ine was tested and appeared to be adequate. The suture line appeared to be hemostatic. The vein gra ft was then tunneled in a subsartorial tunnel all the way up to the groin level and the vein was pass ed with a Darlyn tunneler, the groin incision was exposed. It was still sterilely draped and preppe d. The vessels were occluded with vascular clamps as were the vessel loops. Arteriotomy was made in the distal end of the common femoral artery. Dissection extended up into the plaque and a localized endarterectomy was then done removing the calcified plaque so that the vein graft could be sutured i n place. The distal saphenous vein was then approximated in an end-to-side anastomosis to the common femoral artery again with a running 6-0 Prolene suture. All vessels were flushed prior to completio n of the suture line. Flow was first established through the main SFA and then through the profunda femoris, eventually through the vein graft. The suture lines appeared to be hemostatic both in the g roin and at the knee and flow was opened up freely through the vein bypass. /[id number]/MODL
--- NOTE | 2018-08-10 11:21 | GDS ---
[f rep st] DISCHARGE SUMMARY DISCHARGE DIAGNOSIS: Left peripheral vascular disease with a nonhealing left lower extremity wound. OTHER PERTINENT DIAGNOSES: 1. Non insulin-dependent diabetes mellitus. 2. Hypertension. 3. Bipolar disorder. 4. History of cerebrovascular accident. 5. Coronary artery disease. 6. Benign prostatic hyperplasia. 7. Insomnia. 8. Anemia. PROCEDURES: Left femoral-popliteal bypass with reverse saphenous vein graft and left common femoral endarterectomy. INTRAOPERATIVE FINDINGS: Patient was found to have a soft distal popliteal vessel. The common femor al vessel was quite calcified and difficult, but patent. The patient had good palpable pulses postpr ocedure. CONSULTATIONS: Dr. Glen Evans, hospitalist service. HOSPITAL COURSE: Patient is a 62-year-old male with multiple comorbidities as described above who re sides at [facility] and was found to have a nonhealing left lower extremity wound. Angiogram revealed peripheral arterial disease, and ultimately, he underwent a below-knee femoral-pop liteal bypass with a reverse saphenous vein graft. The procedure was uncomplicated and he tolerated it well. He had good pedal pulses post-procedure. Patient's postoperative course was relatively uneventful. He was kept on bedrest overnight. The t day, he worked with Physical Therapy and Occupational Therapy. His White catheter was removed. He was able to void spontaneously. His pain was well controlled. The Hospitalist Service assisted in management of his multiple comorbidities. DISCHARGE INSTRUCTIONS: Patient was discharged to his subacute nursing facility at [facility] on pos toperative day 3 in stable condition with plans for outpatient followup. Limitations were discussed. /[id number]/MOD
== END 2018-07-31 16:24 | DRG 253 ==
LOC: F1N 08:39 → F2N 09:51 → F3E 07-28 11:15
PROVIDERS: ADMIT Surgery; ATTEND Surgery
PROC: 04CL0ZZ Extirpation of Matter from Left Femoral Artery, Open Approach (ICD-10-PCS; principal; 2018-07-27 10:30)
PROC: 06BQ0ZZ Excision of Left Saphenous Vein, Open Approach (ICD-10-PCS; principal; 2018-07-27 10:30)
PROC: 041L09L Bypass Left Femoral Artery to Popliteal Artery with Autologous Venous Tissue, Open Approach (ICD-10-PCS; principal; 2018-07-27 10:30)
DX: E11.51 Type 2 diabetes mellitus with diabetic peripheral angiopathy without gangrene (principal); I69.354 Hemiplegia and hemiparesis following cerebral infarction affecting left non-dominant side; I25.10 Atherosclerotic heart disease of native coronary artery without angina pectoris; F31.9 Bipolar disorder, unspecified; N40.1 Benign prostatic hyperplasia with lower urinary tract symptoms; G89.29 Other chronic pain; I10 Essential (primary) hypertension; N31.9 Neuromuscular dysfunction of bladder, unspecified; I45.6 Pre-excitation syndrome; G47.00 Insomnia, unspecified; D64.9 Anemia, unspecified; Z72.0 Tobacco use
CPT/HCPCS: 97162-GP; 97166-GO; 97530-GP; 97535-GO; J0690; J1100; J1170; J1644; J1650; J2001; J2370; J2405; J2440; J2704; J2720; J3010; P9041; Q9961; Q9967

== ENCOUNTER 2018-08-01 02:36 | Emergency (ER) | payer OTHER, MEDICAID ==
--- NOTE | 2018-08-01 02:39 | EDPHY ---
H & P Time Seen by Provider: 08/01/18 02:39 HPI/ROS: HPI CHIEF COMPLAINT: dania fell out of left groin incision. HISTORY OF PRESENT ILLNESS: Patient is a 62-year-old male, multiple chronic medical problems presents emergency room he states he was trying to urinate tonight and caught his hand on 1 of his left groin dania and pulled the staple out. He became concerned about this stable being removed. He thinks maybe 2 dania fell out. He has to be transported back to the hospital for evaluation. Denies any significant leg pain. Became concerned when he removed his dania out there was some blood on his sheets. On exam here in emergency room is left leg is warm, has a good distal pulse, good cap refill, he has extensive dania down the left leg along the saphenous vein region, left upper medial thigh, and left groin all the wounds appear clean , dry and intact. There is no wound dehiscence. No palpable hematoma. No significant tenderness. Past Medical History: Significant medical history for peripheral vascular disease extensive medical history for hypertension, WPW, CVA, coronary disease, diabetes, neuropathy Past Surgical History: Recent left fem-pop bypass with reverse saphenous vein graft, left common femoral artery endarterectomy Social History: Currently at [facility]. Family History: Noncontributory Surgeon is Dr. Bernardino DELGADO REVIEW OF SYSTEMS: 10 Systems were reviewed and negative with the exception of the elements mentioned in the history of present illness. Exam Constitutional triage nursing summary reviewed, vital signs reviewed, awake/ alert. Eyes normal conjunctivae and sclera, EOMI, PERRLA. HENT normal inspection, atraumatic, moist mucus membranes, no epistaxis, neck supple/ no meningismus, no raccoon eyes. Respiratory clear to auscultation bilaterally, normal breath sounds, no respiratory distress, no wheezing. Cardiovascular rate normal, regular rhythm, no murmur, no edema, distal pulses normal. Gastrointestinal soft, non-tender, no rebound, no guarding, normal bowel sounds, no distension, no pulsatile mass. Genitourinary no CVA tenderness. Musculoskeletal Left leg: Good distal pulse, good cap refill, warm extremity, extensive left leg incision with numerous dania in place. The wounds all appear clean, dry intact. The incision wound goes up the left saphenous vein region up to left medial groin and over the left groin. The most superior wound of the left groin is missing approximately 2 dania. The incisions are clean, dry and intact. No wound dehiscence. No palpable mass , no hematoma. Ecchymosis present. Appears to be postoperative and ecchymosis of the scrotum. no midline vertebral tenderness, full range of motion, no calf swelling, no tenderness of extremities, no meningismus, good pulses, neurovascularly intact. Skin pink, warm, & dry, no rash, skin atraumatic. Neurologic awake, alert and oriented x 3, AAOx3, moves all 4 extremities equally, motor intact, sensory intact, CN II-XII intact, normal cerebellar, normal vision, normal speech. Psychiatric normal mood/affect. Heme/Lymph/Immune no lymphadenopathy. Differential Diagnosis: Includes but is not limited to in a particular order dania removed from wound, hematoma, wound dehiscence Medical Decision Making: Patient on exam has 2 dania missing from his left inguinal incision. Otherwise the incision is clear, dry and intact. No seroma , no hematoma, no bleeding, no wound dehiscence. Re-evaluation: 0335: Spoke with Dr. Oliveros. Discussed case in detail. She is fine with patient being discharged back to her facility. Patient is asking for pain medicine his nightly dose. I will give him a dose of Percocet. I do believe he can be safely discharged back to his facility. Again on exam missing 2-3 dania. No evidence of seroma or hematoma, no bleeding. Wounds appear clean, dry and intact. Patient's left leg warm with good distal pulse, neurovascular intact. Questions answered for the patient. We also discussed return precautions return emergency room if worsening symptoms questions or concerns. Source: Patient, EMS - Personal History Tetanus Vaccine Date: 2010 - Medical/Surgical History Hx Asthma: No Hx Chronic Respiratory Disease: No Hx Diabetes: Yes Hx Cardiac Disease: Yes Hx Renal Disease: No Hx Cirrhosis: No Hx Alcoholism: No Hx HIV/AIDS: No Hx Splenectomy or Spleen Trauma: No Other PMH: CVA w/ left deficit, DM2, PACEMAKER, neuropathy, HTN, bipolar, ID - Social History Smoking Status: Heavy smoker Constitutional: Initial Vital Signs Temperature (C) 37.2 C 08/01/18 02:44 Heart Rate 77 08/01/18 02:44 Respiratory Rate 16 08/01/18 02:44 Blood Pressure 114/73 08/01/18 02:44 O2 Sat (%) 93 08/01/18 02:44 O2 Delivery Mode Room Air Allergies/Adverse Reactions: fenofibrate nanocrystallized [From Tricor] Allergy (Verified 10/25/15 10:10) fenofibrate,micronized [From Tricor] Allergy (Verified 10/25/15 10:10) Home Medications: Medication Instructions Recorded Acetaminophen [Tylenol ES 500 mg 1,000 mg PO Q2D PRN 11/06/15 (*)] Albuterol [Proventil Neb] 3 ml IH Q6 PRN 11/06/15 Aspirin [Aspirin 81mg (*)] 81 mg PO DAILY 11/06/15 Atorvastatin Calcium [Lipitor 20 20 mg PO DAILY 11/06/15 mg (*)] Benzocaine 20%/Menthol [Orajel (*)] 1 candie TP Q4 PRN 11/06/15 Bethanechol Chloride [Urecholine] 50 mg PO TID 11/06/15 Carvedilol [Coreg (*)] 25 mg PO BIDMEAL 11/06/15 Diazepam [Valium 5 MG (*)] 5 mg PO HS PRN 11/06/15 Ergocalciferol [Vitamin D2 (*)] 50,000 unit PO Q30D 11/06/15 Fluticasone Nasal [Flonase Nasal 1 sprays NASAL BID PRN 11/06/15 [place]] Garnett-3 Fatty Acids [Fish Oil 1000 2,000 mg PO DAILY 11/06/15 mg (*)] Ondansetron Odt [Zofran Odt 4 mg 4 mg PO Q8H PRN 11/06/15 (*)] Polyethylene Glycol 3350 [Miralax 17 gm PO DAILY PRN 11/06/15 17 gm (*)] Sennosides [Senokot] 2 each PO BID 11/06/15 Tamsulosin HCl [Flomax 0.4 MG (*)] 0.8 mg PO DAILY 11/06/15 guaiFENesin/DEXTROMETHORPHAN 10 ml PO Q6H PRN 11/06/15 [Robitussin Dm Oral Liquid (*)] sitaGLIPtin PHOSPHATE [Januvia 100 100 mg PO DAILY 11/06/15 MG (*)] traMADol [Ultram 50 mg (*)] 50 mg PO BID PRN 11/06/15 Budesonide [Rhinocort Aqua] 1 sprays EACHNARE HS 07/27/18 Diazepam 2 mg PO MWF@0900 07/27/18 Ergocalciferol (Vitamin D2) 50,000 unit PO Q7D PRN 07/27/18 [Drisdol] Metformin HCl [Metformin 1000 mg] 1,000 mg PO BIDMEAL 07/27/18 Montelukast Sodium 10 mg PO DAILY 07/27/18 Naproxen Sodium [Aleve 220 MG (*)] 220 mg PO TID PRN 07/27/18 Oseltamivir Phosphate 75 mg PO DAILY 07/27/18 Polyvinyl Alcohol [Artificial 1 drop EACHEYE QID PRN 07/27/18 Tears] Propranolol HCl [Inderal LA 120mg] 120 mg PO DAILY 07/27/18 amLODIPine BESYLATE [Norvasc 2.5 2.5 mg PO DAILY 07/27/18 mg (*)] glipiZIDE [Glipizide ER] 15 mg PO DAILY 07/27/18 lamoTRIgine [Lamotrigine] 150 mg PO DAILY 07/27/18 traZODone HCL [Trazodone HCl] 25 mg PO HS PRN 07/27/18 oxyCODONE/APAP 5/325 [Percocet 1 - 2 tab PO Q4 PRN tab 07/30/18 5/325 (*)] Lisinopril [Zestril 10 mg (*)] 10 mg PO DAILY tab 07/31/18 Polyethylene Glycol 3350 [Miralax 17 gm PO DAILY pkt 07/31/18 17 gm (*)] Departure - Departure Disposition: Home, Routine, Self-Care Clinical Impression: Surgical wound present Condition: Good Instructions: Wound Healing and Your Diet (ED), Staple Care (ED) Referrals: ARIES SO [Primary Care Provider] - As per Instructions Stewart Lebron MD [Medical Doctor] - As per Instructions
[2018-08-01] MEDS ORDERED: NS 1,000 ML IV ONE (02:56)
[2018-08-01] MEDS ORDERED: OXYCODONE/APAP 5/325 TAB ONE (03:35)
[2018-08-01] MEDS ORDERED: OXYCODONE/APAP 5/325 TAB PO ONE (03:35)
[2018-08-01 04:19] VITALS: BP 122/65
== END 2018-08-01 04:16 | disposition home or self-care (01) ==
LOC: EDUNIT#
DX: T81.31XA Disruption of external operation (surgical) wound, not elsewhere classified, initial encounter (principal)